=== PATIENT | female | born 1955 | race American Indian/Alaskan Native ===

== ENCOUNTER 2018-02-13 12:06 | Emergency (ER) | payer OTHER, BC ==
[2018-02-13 12:33] VITALS: TEMP 98.4; BMI 37.8
[2018-02-13] MEDS ORDERED: Oxycodone/Acetaminophen 5/325 mg Tab PO STA (13:07)
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
[2018-02-13 15:18] VITALS: BP 142/79; PULSE 78; RESP 18; O2SAT 99
== END 2018-02-13 15:29 | disposition home or self-care (01) ==
LOC: ED 12:06
DX: S13.4XXA Sprain of ligaments of cervical spine, initial encounter (principal); V49.9XXA Car occupant (driver) (passenger) injured in unspecified traffic accident, initial encounter; M25.512 Pain in left shoulder; J32.0 Chronic maxillary sinusitis; R51 Headache